=== PATIENT | male | born 1955 | race Caucasian/White ===

== ENCOUNTER 2016-09-06 07:25 | Day surgery (SDC) | payer SELFPAY ==
[2016-09-06] VITALS (7 sets, daily range): BP systolic 97–135; BP diastolic 52–82; PULSE 72–90; RESP 14–20; TEMP 97–97.6; O2SAT 92–97; Ht 170.2 cm; Wt 68.7 kg
[~2016-09-06] VITALS: Ht 170.2 cm; Wt 68.7 kg
[~2016-09-06 07:25] MED LIST: LIDOCAINE 1% (10mg/ml) 2ml SDV INJ ONE; LR 1,000 ML IV SCH
--- OUTSIDE RECORDS SUMMARY | 2016-09-06 07:30 | XMS REPORT ---
Author Author Norma Mae Organization [employer] Address Unknown Phone Unavailable Care Team Providers Care Assistant Grocery Name Role Phone Norma Mae CP Unavailable Allergies, Adverse Reactions, Alerts Substance Reaction Event Type N.K.D.A. Info Not Available Non Drug Allergy Problems Problem Type Condition ICD-9 Code Onset Dates Condition Status Problem Unspecified hypothyroidism 244.9 Active Problem Pernicious anemia 281.0 Active Problem Unspecified viral hepatitis C without hepatic coma 070.70 Active Assessment URI 460 Active Problem Unspecified chronic bronchitis 491.9 Active Problem Tobacco use disorder 305.1 Active Medications Medication Code System Code Instructions Start Date End Date Status Dosage Levothyroxine Sodium [facility] [address]-30 50 MCG Orally Once a day Jul 01, 2014 1 tablet on an empty stomach in the morning Ventolin HFA [facility] [address]-74 108 (90 Base) MCG/ACT Inhalation every 4 hrs 2 puffs as needed Amoxicillin [facility] [address]-40 500 MG Orally every 12 hrs July 23, 2014 July 30, [address] [facility] [address]-57 1000 MCG/ML Injection q 30 days Jun 16, 2014 1 ml Procedures Procedure Coding System Code Date OFFICE VISIT, EST-LOW COMPLEXITY (15 MIN.) CPT-4 87339 July 23, 2014 INHALATION TREATMENT. CPT-4 16811 July 23, 2014 Vital Signs Date/Time: July 23, 2014 Height 68 in Weight 152.4 lbs Temperature 98.1 F Blood Pressure Diastolic 62 mm Hg Blood Pressure Systolic 128 mm Hg Cardiac Monitoring Heart Rate 74 /min BMI 23.17 Index Oximetry 97 % Results No Known Results Summary Purpose [employer] Submission
--- OUTSIDE RECORDS SUMMARY | 2016-09-06 07:30 | XMS REPORT ---
Author Author Norma Mae Organization [employer] Address Unknown Phone Unavailable Care Team Providers Care Lead Sprinkler Name Role Phone Norma Mae CP Unavailable Allergies No Known Allergies Problems Problem Type Condition Code Onset Dates Condition Status Problem Unspecified hypothyroidism 244.9 Active Problem Pernicious anemia 281.0 Active Problem Unspecified viral hepatitis C without hepatic coma 070.70 Active Problem Unspecified chronic bronchitis 491.9 Active Problem Tobacco use disorder 305.1 Active Medications Medication Code System Code Instructions Start Date End Date Status Dosage Levothyroxine Sodium [facility] [address]-78 75 MCG Orally Once a day Jul 01, 2014 1 tablet on an empty stomach in the morning Results No Known Results Summary Purpose [employer] Submission
--- OUTSIDE RECORDS SUMMARY | 2016-09-06 07:30 | XMS REPORT ---
Author Author Norma Mae Organization [employer] Address Unknown Phone Unavailable Care Team Providers Care Stringer Machine Tender Name Role Phone Norma Mae CP Unavailable Allergies No Known Allergies Problems Problem Type Condition ICD-9 Code Onset Dates Condition Status Problem Unspecified chronic bronchitis 491.9 Active Problem Tobacco use disorder 305.1 Active Problem Pernicious anemia 281.0 Active Medications No Known Medications Results No Known Results Summary Purpose [employer] Submission
--- OUTSIDE RECORDS SUMMARY | 2016-09-06 07:30 | XMS REPORT ---
Author Author Norma Mae Organization [employer] Address Unknown Phone Unavailable Care Team Providers Care Solar Installer Name Role Phone Norma Mae CP Unavailable Allergies No Known Allergies Problems Problem Type Condition ICD-9 Code Onset Dates Condition Status Problem Unspecified hypothyroidism 244.9 Active Problem Pernicious anemia 281.0 Active Problem Unspecified viral hepatitis C without hepatic coma 070.70 Active Problem Unspecified chronic bronchitis 491.9 Active Problem Tobacco use disorder 305.1 Active Medications No Known Medications Results No Known Results Summary Purpose [employer] Submission
--- OUTSIDE RECORDS SUMMARY | 2016-09-06 07:30 | XMS REPORT ---
Author Author Norma Mae Organization [employer] Address Unknown Phone Unavailable Care Team Providers Care Child Care Sitter Name Role Phone Norma aMe CP Unavailable Allergies No Known Allergies Problems Problem Type Condition Code Onset Dates Condition Status Problem Unspecified hypothyroidism 244.9 Active Problem Pernicious anemia 281.0 Active Problem Unspecified viral hepatitis C without hepatic coma 070.70 Active Assessment Unspecified hypothyroidism 244.9 Active Problem Unspecified chronic bronchitis 491.9 Active Problem Tobacco use disorder 305.1 Active Medications Medication Code System Code Instructions Start Date End Date Status Dosage Levothyroxine Sodium [facility] [address]-96 50 MCG Orally Once a day Jul 01, 2014 1 tablet on an empty stomach in the morning Ventolin HFA [facility] [address]-79 108 (90 Base) MCG/ACT Inhalation every 4 hrs 2 puffs as needed Cyanocobalamin [facility] [address]-54 1000 MCG/ML Injection q 30 days Jun 16, 2014 1 ml Procedures Procedure Coding System Code Date TSH CPT-4 83598 August 26, 2014 Results No Known Results Summary Purpose [employer] Submission
--- OUTSIDE RECORDS SUMMARY | 2016-09-06 07:30 | XMS REPORT | Continuity of Care Document ---
Author Author [facility] Organization [facility] Address Unknown Phone Unavailable Allergies Active Description Code Type Severity Reaction Onset Reported/Identified Relationship to Patient Clinical Status Yes No Known Drug Allergies No Known Drug Allergies Drug Allergy Unknown N/A 09/28/2014 Medications Problems Procedures Code Description Performed By Performed On OPERATION ON LENS, NOT ELSEWHERE CLASSIFIED Madi Aguilera MD 10/12/2014 14.74 MECH VITRECTOMY NEC Madi Aguilera MD 10/12/2014 Results Test Result Range HEMOGLOBIN - 09/28/14 08:00 MEAN CELL VOLUME 92.4 fl 80.0-100.0 HEMOGLOBIN 16.2 gm/dL 14.0-18.0 METABOLIC PANEL, BASIC - 09/28/14 08:00 POTASSIUM 4.1 mmol/L 3.5-5.3 EST GFR (MDRD) > 60 mL/min > 59 ANION GAP 10 mmol/L 5-15 EST CrCl (CG) > 60 mL/min > 59 GLUCOSE 96 mg/dL 70-99 CALCIUM 8.6 mg/dL 8.5-10.1 BLOOD UREA NITROGEN 9 mg/dL 7-20 CREATININE 1.0 mg/dL 0.8-1.3 SODIUM 138 mmol/L 135-148 CHLORIDE 102 mmol/L 98-110 CARBON DIOXIDE 26 mmol/L 21-32 ALCOHOL (ETHANOL) SERUM - 09/28/14 08:11 ALCOHOL (ETHANOL) SERUM 78 mg/dL < 10 HEMOGLOBIN - 10/12/14 07:55 MEAN CELL VOLUME 92.7 fl 80.0-100.0 HEMOGLOBIN 16.8 gm/dL 14.0-18.0 Encounters ACCT No. Visit Date/Time Discharge Status Pt. Type Provider Facility Loc./Unit Complaint [id number] 10/12/2014 07:05:00 2014 10:40:00 DIS Outpatient Madi Aguilera MD [facility] W.OPRA [id number] 09/28/2014 06:34:00 2014 09:42:00 DIS Outpatient Willy COLES, [facility] SEMAJ
--- OUTSIDE RECORDS SUMMARY | 2016-09-06 07:30 | XMS REPORT ---
Author Author Norma Mae Organization [employer] Address Unknown Phone Unavailable Care Team Providers Care Kiln Firer Helper Name Role Phone Norma Mae CP Unavailable Allergies, Adverse Reactions, Alerts Substance Reaction Event Type N.K.D.A. Info Not Available Non Drug Allergy Problems Problem Type Condition ICD-9 Code Onset Dates Condition Status Assessment Hepatomegaly 789.1 Active Problem Unspecified chronic bronchitis 491.9 Active Problem Tobacco use disorder 305.1 Active Problem Pernicious anemia 281.0 Active Assessment Tobacco use disorder 305.1 Active Assessment Screening for lipoid disorders V77.91 Active Assessment Pernicious anemia 281.0 Active Assessment Unspecified chronic bronchitis 491.9 Active Medications Medication Code System Code Instructions Start Date End Date Status Dosage Cyanocobalamin [facility] [address]-36 1000 MCG Orally Once a month 1 mcg Ventolin HFA [facility] [address]-31 108 (90 Base) MCG/ACT Inhalation every 4 hrs 2 puffs as needed Cyanocobalamin [facility] [address]-11 1000 MCG/ML Injection q 30 days Jun 16, 2014 1 ml Procedures Procedure Coding System Code Date COMPLETE CBC W/AUTO DIFF WBC CPT-4 69188 Jun 16, 2014 COMPREHENSIVE METABOLIC PANEL CPT-4 59424 Jun 16, 2014 VITAMIN B12 CPT-4 58170 Jun 16, 2014 OFFICE VISIT, SLEEP TECH-MOD. COMPLEXITY (45 MIN.) CPT-4 19386 Jun 16, 2014 URINALYSIS, IN HOUSE CPT-4 87037 Jun 16, 2014 LIPID PANEL CPT-4 28967 Jun 16, 2014 TSH CPT-4 69656 Jun 16, 2014 HEPATITIS PANEL CPT-4 51362 Jun 16, 2014 Vital Signs Date/Time: Jun 16, 2014 Height 68 in Weight 153.4 lbs Temperature 98.0 F Blood Pressure Diastolic 82 mm Hg Blood Pressure Systolic 132 mm Hg Cardiac Monitoring Heart Rate 64 /min BMI 23.32 Index Respiratory Rate 14 /min Results No Known Results Summary Purpose [employer] Submission
[2016-09-06] MEDS ORDERED: LEVO100T12 PO (08:08)
[2016-09-06] MEDS ORDERED: SUCR1TAB PO (08:09)
[2016-09-06] MEDS ORDERED: ALBU8.5H INH (08:13)
[2016-09-06] MEDS ORDERED: PROPOFOL 500mg 50 ML IV ONE ×3 (10:01→11:01)
--- NOTE | 2016-09-06 10:09 | ANESPREOP ---
Anesthesia Record Date and Time DATE: 09/06/16 TIME: 09:32 Pre-Op Diagnosis Hematochezia Proposed Surgical Procedure COLONOSCOPY NPO since: Midnight Allergies: Coded Allergies: No Known Allergies (Unverified , 09/06/16) Ht/Wt/BMI Height: 5 ' 7.00 " Weight: 68.700 kg BMI: 23.7 kg/m2 Vital Signs Date Time Temp Pulse Resp B/P Pulse Ox O2 Delivery O2 Flow Rate FiO2 09/06/16 08:21 80 18 09/06/16 07:52 97.6 135/74 93 Room Air Medications Inpatient Medications Current Medications Medications (Trade) Dose Ordered Sig/Roxanne Start Time Stop Time Status Last Admin Dose Admin Lactated Ringer's (Lactated Ringers) 1,000 ml @ 50 mls/hr Q20H 09/06/16 07:00 Albuterol Sulfate (Proair HFA 90 mcg/actuation) 8.5 Gm Hfa.aer.ad, 2 PUFF INH Q4H PRN for SHORTNESS OF AIR, (Reported) Last Taken: on 09/06/16 0630 Levothyroxine Sodium (Levothyroxine Sodium) 100 Mcg Tablet, 1 TAB PO ACB, (Reported) Once daily before breakfast Last Taken: on 09/06/16 0630 Sucralfate (Sucralfate) 1 Gm Tablet, 1 TAB PO TID, (Reported) Last Taken: on 09/05/16 0900 Currently on Beta Michel: No Medical/Surgical History Anesthesia PMH: Reports: *Dyspnea (USES PRO AIR INHALER), Asthma, Thyroid Disease (LEVOTHYROXINE), Denies: *Diabetes, Anesthesia Reactions (NO AIRWAY ISSUES), Arthritis, Blood Transfusion Reac, Cancer, Clotting Problems, Glaucoma , Malignant Hyperthermia, Renal Disease, Sleep Apnea Smoking Status: Current every day smoker Has pt. smoked today?: No # of Packs per Day: 1 # of Years: 45 Use Chewing Tobacco?: No Second Hand Exposure: No Substance Use Type: does not use Alcohol Intake: former alcohol drinker Past Surgical History Orthopedic Surgeries: Yes - R ARM X3, R WILL X3 Abdominal Surgeries: Genitourinary Surgeries: Cardiac Surgeries: Endocrine Surgeries: Reproductive Surgeries: Neurological Surgeries: Ear Surgeries: Nose Surgeries: Throat Surgeries: Other Surgeries: Yes - CATARACTS X3 Anesthesia Adverse Reactions: FOUND none Family Hx of Anesthesia Advers: none Hx of Motion Sickness: No Pertinent Findings EKG Rhythm: Sinus Rhythm Physical Exam Respiratory: Lungs clear Cardiovascular: FOUND Regular rate, rhythm Airway Assessment Mallampati Score: II TMD: 3 Fingerbreadths Neck Extension: Good Overall Assessment: No Airway Concerns ASA: 2 Plan Anesthesia Plan: TIVA Discussion Discussed risks/options/alternatives of anesthesia and questions answered. Patient consents. Nursing pain assessment noted. Present: Family Member Attestation Statement Prior to the delivery of any anesthetic medication, I examined the patient, developed the plan, obtained the patient's consent and discussed the risk and benefits of the procedure with the patient/guardian. ANASTACIO MENDOZA LAST CHALKER Sep 06, 2016 09:34
[2016-09-06] MEDS ORDERED: EPHEDRINE SULFATE 50mg/ml INJECTION ONE (10:13)
--- NOTE | 2016-09-06 11:39 | GSPOSTPROC ---
Immediate Operative Note DATE: 09/06/16 TIME: 11:37 Postop Diagnosis: * Internal Hemorrhoids * Telangiectasias of the rectum * Mucosal abnormalities of descending and distal transverse colon * Multiple colon polyps Surgical Procedure: C-scope w/Polypectomy Surgeon: Rah ASA: 2 CLARENCE KRAMER MD Sep 06, 2016 11:38
--- NOTE | 2016-09-06 13:28 | ANESPO ---
Post-Op Note Date 09/06/16 Time: 13:27 Status Pt Participated in Evaluation: Pt participated in person Vital Signs Date Time Temp Pulse Resp B/P Pulse Ox O2 Delivery O2 Flow Rate FiO2 09/06/16 12:25 72 20 119/74 92 Room Air 09/06/16 11:55 4.00 09/06/16 11:27 97.0 Respiratory Function: Airway patent Cardiovascular Function: Regular pulse Telemetry Pattern: SR Mental Status: Alert/oriented Pain Level Intensity: 0 Hydration: Taking po fluids Complications during Recovery None apparent Follow-Up Instructions Instructions Per Surgeon ANASTACIO MENDOZA CRNA Sep 06, 2016 13:27
--- NOTE | 2016-09-07 07:40 | OPNOTEF ---
DATE OF OPERATION 09/06/2016 SURGEON Carmelo Monreal MD PREOPERATIVE DIAGNOSIS Hematochezia POSTOPERATIVE DIAGNOSES 1. Moderate internal hemorrhoids - likely source of bleeding. 2. Small telangiectasias of the rectum. 3. Two adjacent mucosal abnormalities of the descending colon - possible polyps - pathology pending. 4. 0.7 cm mucosal abnormality of the distal transverse colon - pathology pending. 5. 0.5 cm sessile polyp of the distal transverse colon. 6. 0.5 cm sessile polyp of the descending colon. 7. 0.7 cm sessile polyp of the distal descending colon. 8. 0.5 cm sessile polyp of the descending colon. 9. 0.5 cm sessile polyp of the sigmoid colon x 2. 10. Less than 0.5 cm sessile polyps of the sigmoid colon x 2. PROCEDURE Colonoscopy with hot snare polypectomy x 1 and hot biopsy forceps polypectomy x 10. ANESTHESIA TIVA ASA CLASS 2 INDICATIONS The patient is a 61-year-old male who has never had prior colonoscopy. He had developed hematochezia in mid-July and later had an iFOB test done on 08/14/2016 which was positive. Colonoscopy was recommended to him. FINDINGS There were moderate internal hemorrhoids that did appear as if they could have been the source of hematochezia. There were some small telangiectasias of the rectum that did not appear to have evidence of any recent bleeding or likelihood of bleeding. There were some very flat mucosal abnormalities with increased vascularity around the rim of the abnormalities. Two of these were located in the descending colon and one was in the distal transverse colon. The remaining mucosal abnormalities did seem more consistent with polyps with a slightly raised appearance but also increased vascularity at their borders. DESCRIPTION OF PROCEDURE After informed consent was obtained the patient was taken to the endoscopy suite and placed in left lateral decubitus position. IV anesthesia was administered by the anesthesia team. A digital rectal exam was performed and was normal. An Olympus video colonoscope with an AlgenetixYE device was inserted and retroflexed to examine the distal rectum. Moderate internal hemorrhoids were noted. The scope was returned to a neutral position. The telangiectasias of the rectum were noted. The patient had received a MiraLAX/Dulcolax bowel prep the day prior. His bowel prep was very good with minimal residual liquid contents of the colon that were able to be evacuated via the colonoscope. There was some particulate matter in the ascending colon but this did not obscure any significant component of the mucosa. The scope was advanced to the descending colon where two adjacent mucosal abnormalities were noted. It was unclear whether these were very sessile polyps or another mucosal process. These were treated as sessile polyps and were grasped with hot biopsy forceps. The mucosa was tented and cautery was applied to destroy the mucosal abnormality and a slight rim of the surrounding mucosa. The abnormal mucosa was removed with biopsy forceps and was sent to pathology. The scope was advanced to the level of the cecum without difficulty. The cecum was identified by the appendiceal orifice. The ileocecal valve was also identified and the distal ileum was also visualized though the ileocecal valve was not intubated. The scope was slowly withdrawn examining the mucosa circumferentially. Upon reaching the distal transverse colon, another sessile mucosal abnormality was encountered. Attempts were made to encircle this with the polypectomy snare given its larger size, but this was unsuccessful and so it was also removed with a hot biopsy forceps technique. Adjacent to this there was a 0.5 cm raised lesion consistent with a polyp that was removed with the hot biopsy forceps technique. Another polyp in the descending colon was also removed in this fashion and was sent to pathology. Upon reaching the distal descending colon, there was a 0.7 cm area that was raised. This was able to be encircled with the polypectomy snare and the mucosa was elevated prior to division of the mucosa with cautery. The polyp itself was retrieved via a biopsy forceps through the colonoscope. It was sent to pathology. There had been an adjacent smaller polyp that was in line with the larger polyp. This was also divided with the polypectomy snare. It had been retrieved via suction trap, but a hot biopsy forceps technique was used to cauterize and biopsy an additional portion of that smaller polyp. There were four polyps in the sigmoid colon that were all removed with a hot biopsy forceps polypectomy technique. The scope was withdrawn to the rectum where the carbon dioxide insufflation was evacuated prior to scope removal. The patient tolerated the procedure well. He was transferred to the recovery area in stable condition. RECOMMENDATIONS 1. Await pathology results to determine the necessary time interval for repeat colonoscopy and to see if any additional treatment is needed. 2. High-fiber diet with a fiber supplement due to hemorrhoids. [facility]
== END 2016-09-06 12:30 | disposition home or self-care (01) ==
LOC: SCU 07:25
PROVIDERS: ATTEND Surgery
DX: D12.4 Benign neoplasm of descending colon (principal); D12.3 Benign neoplasm of transverse colon; D12.5 Benign neoplasm of sigmoid colon; K64.8 Other hemorrhoids; K92.1 Melena; I99.8 Other disorder of circulatory system; D51.0 Vitamin B12 deficiency anemia due to intrinsic factor deficiency; E03.9 Hypothyroidism, unspecified; F17.210 Nicotine dependence, cigarettes, uncomplicated; Z79.899 Other long term (current) drug therapy